=== PATIENT | female | born 1970 | race Caucasian/White ===

== ENCOUNTER 2017-07-19 09:15 | Inpatient (IN) | payer OTHER ==
[~2017-07-19] VITALS: Ht 152.4 cm; Wt 69.9 kg
[2017-07-20] MEDS ORDERED: SYNTHROID75 MCG PO (12:34)
[2017-07-20] MEDS ORDERED: CYTOMEL25 MCG PO (12:35)
[2017-07-20] MEDS ORDERED: GABAPENTIN600 MG PO (12:36)
[2017-07-20] MEDS ORDERED: WELLBUTRIN XL300 MG PO (12:36)
[2017-07-20] MEDS ORDERED: CLONAZEPAM0.5 MG PO (12:36)
== END 2017-07-29 11:33 | DRG 743 ==
LOC: O/R 07-26 07:55 → OB/GYN 07-26 07:55 → SURH 07-26 08:30 → OB/GYN 07-26 16:57
PROVIDERS: Obstetrics & Gynecology; Urology
PROC: 0DNW0ZZ Release Peritoneum, Open Approach (ICD-10-PCS; 2017-07-26)
PROC: 0WJH0ZZ Inspection of Retroperitoneum, Open Approach (ICD-10-PCS; 2017-07-26)
PROC: 0T788DZ Dilation of Bilateral Ureters with Intraluminal Device, Via Natural or Artificial Opening Endoscopic (ICD-10-PCS; 2017-07-26)
PROC: 0UT90ZZ Resection of Uterus, Open Approach (ICD-10-PCS; principal; 2017-07-26 08:30)
PROC: 0UT70ZZ Resection of Bilateral Fallopian Tubes, Open Approach (ICD-10-PCS; 2017-07-26 08:30)
DX: D25.1 Intramural leiomyoma of uterus (principal); K66.8 Other specified disorders of peritoneum; N93.8 Other specified abnormal uterine and vaginal bleeding

== ENCOUNTER 2023-01-09 12:40 | Outpatient (CLI) | payer OTHER ==
[~2023-01-09 12:40] MED LIST: CLONAZEPAM0.5 MG PO; CYTOMEL25 MCG PO; GABAPENTIN600 MG PO; SYNTHROID75 MCG PO; WELLBUTRIN XL300 MG PO
== END 2023-01-09 12:46 | disposition home or self-care (01) ==
LOC: RAD 12:40
PROVIDERS: ATTEND Urology
DX: N20.1 Calculus of ureter (principal); Z88.6 Allergy status to analgesic agent